=== PATIENT | female | born 1975 | race Caucasian/White ===

== ENCOUNTER 2016-04-26 18:37 | Emergency (ER) | payer MEDICAID ==
[~2016-04-26] VITALS: Wt 79.0 kg
[~2016-04-26 18:37] MED LIST: NAPR-688 PO
[2016-04-26] MEDS ORDERED: AMO500 PO (19:15)
--- NOTE | 2016-04-26 19:15 | ERD ---
ER Documentation Chief Complaint Date/Time DATE: 04/26/16 Chief Complaint Sore throat, fever HPI The patient is a 40-year-old female who presents to the Emergency Department with complaint of sore throat and fever for the past 2 days. The patient describes a [id number] aching pain to the posterior pharynx that is constant since onset. She rates her current pain as 6/10, and notes that the pain increases upon swallowing solids. However, she denies any difficulty tolerating solids/liquids. Denies any change in phonation, excessive drooling, or difficulty tolerating her oral secretions. Denies difficulty opening/ closing the mouth. Denies recent dental trauma, surgery, or infections. Denies neck pain, neck stiffness, ear pain, cough, or new rashes. Denies chest pain, palpitations, shortness of breath. Denies any sick contacts with similar symptoms. The patient does note that she has experienced similar symptoms in the past, at which time she was diagnosed with streptococcal pharyngitis, and placed on a course of antibiotics. ROS All systems reviewed and are negative except as per history of present illness. Medications Home Meds Active Scripts Benzocaine/Menthol* (Cepacol* Sore Throat Lozenges) 1 Each Lozenge, 1 EACH MM q2h Y for SORE THROAT, #18 LOZENGE Prov:ANAND ESTES PA-C 04/26/16 Ibuprofen* (Motrin*) 600 Mg Tab, 600 MG PO Q6, #30 TAB Prov:ANAND ESTES PA-C 04/26/16 Amoxicillin* (Amoxicillin*) 500 Mg Cap, 500 MG PO BID for 10 Days, CAP Prov:ANAND ESTES PA-C 04/26/16 Reported Medications Naproxen* (Naproxen*) 500 Mg Tablet, 500 MG PO BID 10/14/11 Allergies Allergies: Coded Allergies: No Known Allergy (Verified , 11/10/13) PMhx/Soc History of Surgery: No Anesthesia Reaction: No Hx Neurological Disorder: No Hx Respiratory Disorders: No Hx Cardiac Disorders: No Hx Psychiatric Problems: No Hx Miscellaneous Medical Probl: No Hx Alcohol Use: No Hx Substance Use: No Hx Tobacco Use: No Physical Exam Vitals Vital Signs Date Time Temp Pulse Resp B/P Pulse Ox O2 Delivery O2 Flow Rate FiO2 1/27/17 18:50 98.7 91 20 117/59 98 Physical Exam GENERAL: Well-developed, well-nourished, in no acute distress. Nontoxic. Well- appearing. HEENT: Head is normocephalic, atraumatic. No scleral pallor or icterus. Pupils equal, round and reactive to light. Extraocular movements intact. Conjunctiva pink. Nares are patent bilaterally. Bilaterally tympanic membranes are clear with no evidence of erythema, effusion or dulling of the light reflex. Moist mucous membranes. Posterior pharynx erythematous with exudates noted bilaterally. Uvula is midline with no deviation. No trismus. No stridor. No excessive drooling. No brawny induration. No submandibular swelling. No tripoding. No pooling of oral secretions. Phonation is normal. NECK: Supple. Tender anterior cervical lymphadenopathy. lymphadenopathy. Trachea midline. No nuchal rigidity. Full range of motion. RESPIRATORY: Lungs are clear to auscultation bilaterally. Equal breath sounds. Normal expiratory effort. CARDIOVASCULAR: Regular rate and rhythm. No murmurs. GASTROINTESTINAL: Abdomen is soft, nontender, and nondistended. Normal bowel sounds. BACK: Normal range of motion. EXTREMITIES: No clubbing, cyanosis, or edema. Normal skin perfusion. Moving all extremities. Muscle tone is normal. No focal swelling or erythema. Distal pulses are palpable, 2+ bilaterally. Capillary refill is less than 2 seconds. NEUROLOGIC: The patient is alert, awake, and oriented x 3. No focal neurologic deficits. Speech is normal. INTEGUMENT: Skin is clean, dry and intact. No rashes, lesions or petechiae present. Normal turgor. PSYCHIATRIC: Appropriate; Cooperative. Procedures/MDM This is a 40-year-old female presenting to the Emergency Department complaining of sore throat and fever. She is non-toxic appearing and exhibits no meningeal signs. On physical examination the patient's posterior pharynx is erythematous, with exudates noted bilaterally. She had tender anterior cervical lymphadenopathy. The differential diagnosis includes, but is not limited to, pharyngitis, laryngitis, epiglottitis, peritonsillar abscess, Dionicio's angina, mononucleosis, allergic reaction, candidiasis, stomatitis, foreign body, dental pain, pneumonia. The patient's condition remained stable during her stay. Given that the patient presented with fever, tonsillar exudates, tender anterior cervical lymphadenopathy and no cough, she fulfilled all four conditions of the Cent[employer] Criteria, and I believe that the patient's symptoms are most consistent with exudative pharyngitis, likely streptococcal. Uvula is midline. There was no uvular deviation, submandibular swelling, brawny induration, elevation of the tongue, change in phonation, tripoding. I do not suspect peritonsillar abscess, retropharyngeal abscess, Dionicio's angina, epiglottitis or any other emergent medical condition. At this time, the patient is in stable condition, and therefore can be discharged home with prescriptions for Amoxicillin, Ibuprofen and Cepacol lozenges, and given strict return precautions for signs of deteriorating or worsening condition. She is advised to follow-up with her primary care provider for reevaluation and further management within the next 2-3 days, or return to the ER sooner for any new or worsening symptoms. I shared my medical decision making and plan with the patient at length and in great detail, and she verbally understands and agrees with the plan for further observation and care as an outpatient. At the time of discharge, all questions were answered. Departure Diagnosis: Primary Impression: Exudative pharyngitis Condition: Stable Patient Instructions: Pharyngitis, Strep (Presumed), Self-Care for Sore Throats , When You Have a Sore Throat Additional Instructions: Llame al doctor ERANANA y renate yessy BIJAN PARA DENTRO DE 2-3 WHITAKER.Dgale a la secretaria que nosotros le instruimos hacer esta bijan.Avise o llame si mayer condicin se empeora antes de la bijan. Regresa aqui si peor o no mejor. ANAND ESTES PA-C Apr 26, 2016 19:15
[2016-04-26] MEDS ORDERED: IBUP-1542 PO (19:16)
[2016-04-26] MEDS ORDERED: BENZ1LOZ52 MM (19:16)
== END 2016-04-26 19:16 | disposition home or self-care (01) ==
LOC: E/R 18:37
DX: J02.9 Acute pharyngitis, unspecified (principal)
CPT/HCPCS: 99283

== ENCOUNTER 2016-04-28 13:47 | Emergency (ER) | payer MEDICAID ==
[~2016-04-28] VITALS: Wt 72.0 kg
[~2016-04-28 13:47] MED LIST changes: +AMO500 PO; +BENZ1LOZ52 MM; +IBUP-1542 PO
[2016-04-28] MEDS ORDERED: KETOROLAC 60 MG INJ IM STA (14:42)
[2016-04-28] MEDS ORDERED: ACET1TAB40 PO (14:43)
--- NOTE | 2016-04-28 14:46 | ERD ---
ER Documentation Chief Complaint Date/Time DATE: 04/28/16 TIME: 14:44 Chief Complaint RIGHT SIDE NECK SWELLING FOR A FEW DAYS. NOT BETTER WITH ABX HPI This 40-year-old female presents with sore throat and swelling on the right side of her neck for the last 3 days. She was seen here 2 days ago and treated with amoxicillin and ibuprofen. She has no fevers, shortness of breath, vomiting. She has pain with swallowing. Symptoms are worse on the right side ROS All systems reviewed and are negative except as per history of present illness. Medications Home Meds Active Scripts Acetaminophen with Codeine (Acetaminophen-Cod #3 Tablet) 1 Each Tablet, 1 TAB PO Q6H, #7 TAB Prov:SREEDHAR POLLACK MD 04/28/16 Benzocaine/Menthol* (Cepacol* Sore Throat Lozenges) 1 Each Lozenge, 1 EACH MM q2h Y for SORE THROAT, #18 LOZENGE Prov:ANAND ESTES PA-C 04/26/16 Ibuprofen* (Motrin*) 600 Mg Tab, 600 MG PO Q6, #30 TAB Prov:ANAND ESTES PA-C 04/26/16 Amoxicillin* (Amoxicillin*) 500 Mg Cap, 500 MG PO BID for 10 Days, CAP Prov:ANAND ESTES PA-C 04/26/16 Reported Medications Naproxen* (Naproxen*) 500 Mg Tablet, 500 MG PO BID 10/14/11 Allergies Allergies: Coded Allergies: No Known Allergy (Verified , 11/10/13) PMhx/Soc History of Surgery: No Anesthesia Reaction: No Hx Neurological Disorder: No Hx Respiratory Disorders: No Hx Cardiac Disorders: No Hx Psychiatric Problems: No Hx Miscellaneous Medical Probl: No Hx Alcohol Use: No Hx Substance Use: No Hx Tobacco Use: No Physical Exam Vitals Vital Signs Date Time Temp Pulse Resp B/P Pulse Ox O2 Delivery O2 Flow Rate FiO2 04/28/16 13:56 98.6 91 20 125/75 98 Physical Exam Const: [] Alert, [id number] per Head: Atraumatic Eyes: Normal Conjunctiva ENT: Normal External Ears, Nose and Mouth. There are some tender anterior cervical lymphadenitis on the right side. Tonsils are 2+ with exudate. Uvula is midline. There is some very slight peritonsillar swelling on the right. Neck: Full range of motion..~ No meningismus. Resp: Clear to auscultation bilaterally Cardio: Regular rate and rhythm, no murmurs Abd: Soft, non tender, non distended. Normal bowel sounds Skin: No petechiae or rashes Back: No midline or flank tenderness Ext: No cyanosis, or edema Neur: Awake and alert Psych: Normal Mood and Affect Results 24 hrs Current Medications Medications (Trade) Dose Ordered Sig/Nancy Route PRN Reason Start Time Stop Time Status Last Admin Dose Admin Ketorolac Tromethamine (Toradol) 60 mg ONCE STAT IM 04/28/16 14:42 04/28/16 14:43 DC Dexamethasone (Decadron) 10 mg ONCE ONCE IM 04/28/16 15:00 04/28/16 15:01 Procedures/MDM Patient presents with partially treated exudative pharyngitis. She may have a very small early abscess but currently is not size with which appears to need incision and drainage of further evaluation. She has some tender lymphadenitis as well. She will be treated with Decadron 10 mg IM, Toradol 60 mg IM and instructions to recheck the next day for worsening swelling, difficulty for evaluation of peritonsillar abscess. Patient currently has no airway compromise , visual erythema, signs of cellulitis or sepsis Departure Diagnosis: Primary Impression: Pharyngitis Pharyngitis/tonsillitis etiology: unspecified etiology Qualified Code: J02.9 - Pharyngitis, unspecified etiology Condition: Stable Patient Instructions: Pharyngitis, Strep (Presumed), Peritonsillar Infection Abx Only, No I And D Additional Instructions: CONTINUA AMOXICILLINA. Cheque otro vez con mayer doctor primario en el proximo francisco or regresa para mas o nueva simptomas MANANA. SREEDHAR POLLACK MD Apr 28, 2016 14:46
[2016-04-28] MEDS ORDERED: DEXAMETHASONE 10 MG/ML 1 ML INJ IM ONE (15:00)
== END 2016-04-28 16:30 | disposition home or self-care (01) ==
LOC: FTE 13:47
DX: J02.9 Acute pharyngitis, unspecified (principal)
CPT/HCPCS: 96372; J1100; J1885; Z7502

== ENCOUNTER 2016-05-01 19:23 | Emergency (ER) | payer MEDICAID ==
[~2016-05-01] VITALS: Ht 162.6 cm; Wt 78.0 kg
[~2016-05-01 19:23] MED LIST changes: +ACET1TAB40 PO
[2016-05-01 20:07] VITALS: Ht 162.6 cm; Wt 78.0 kg
[2016-05-01] MEDS ORDERED: IBUP-1542 PO (20:29)
[2016-05-01] MEDS ORDERED: CLIN-73 PO (20:29)
[2016-05-01] MEDS ORDERED: PRED50TA PO (20:29)
--- NOTE | 2016-05-01 20:35 | ERD ---
ER Documentation Chief Complaint Date/Time DATE: 05/01/16 TIME: 20:33 Chief Complaint c/o sore throat for a week seen 3x here HPI 40-year-old female presents here in emergency department for reevaluation, patient was seen here 3 days ago for the same problem, was complaining of sore throat, patient was given antibiotic states that continues to have the pain but symptoms has improved. Patient was advised to return here for reevaluation. Patient discussed the started as burning pain,4/10 scale, is worse upon swallowing. Patient denies any stridor or shortness of breath. Patient denies any fever or chills. Patient denies any difficulty swallowing. ROS All systems reviewed and are negative except as per history of present illness. Medications Home Meds Active Scripts Clindamycin Hcl* (Clindamycin Hcl*) 300 Mg Capsule, 300 MG PO TID for 10 Days, CAP Prov:INGA GREENWOOD NP 05/01/16 Prednisone* (Prednisone*) 50 Mg Tablet, 50 MG PO DAILY for 5 Days, TAB Prov:INGA GREENWOOD NP 05/01/16 Ibuprofen* (Motrin*) 600 Mg Tab, 600 MG PO Q6H Y for PAIN AND OR ELEVATED TEMP, #30 TAB Prov:INGA GREENWOOD NP 05/01/16 Acetaminophen with Codeine (Acetaminophen-Cod #3 Tablet) 1 Each Tablet, 1 TAB PO Q6H, #7 TAB Prov:SREEDHAR POLLACK MD 04/28/16 Benzocaine/Menthol* (Cepacol* Sore Throat Lozenges) 1 Each Lozenge, 1 EACH MM q2h Y for SORE THROAT, #18 LOZENGE Prov:ANAND ESTES PA-C 04/26/16 Ibuprofen* (Motrin*) 600 Mg Tab, 600 MG PO Q6, #30 TAB Prov:ANAND ESTES PA-C 04/26/16 Amoxicillin* (Amoxicillin*) 500 Mg Cap, 500 MG PO BID for 10 Days, CAP Prov:ANAND ESTES PA-C 04/26/16 Reported Medications Naproxen* (Naproxen*) 500 Mg Tablet, 500 MG PO BID 10/14/11 Allergies Allergies: Coded Allergies: No Known Allergy (Verified , 11/10/13) PMhx/Soc Medical and Surgical Hx: pt denies Medical Hx, pt denies Surgical Hx History of Surgery: No Anesthesia Reaction: No Hx Neurological Disorder: No Hx Respiratory Disorders: No Hx Cardiac Disorders: No Hx Psychiatric Problems: No Hx Miscellaneous Medical Probl: No Hx Alcohol Use: No Hx Substance Use: No Hx Tobacco Use: No FmHx Family History: No coronary disease, No diabetes, No other Physical Exam Vitals Vital Signs Date Time Temp Pulse Resp B/P Pulse Ox O2 Delivery O2 Flow Rate FiO2 05/01/16 20:07 99.0 78 16 124/60 98 Physical Exam GENERAL: The patient is well developed and appropriate for usual state of health, in no apparent distress. HEENT: Atraumatic. Ears: Normal tympanic membrane, no erythema or bulging. No ear canal swelling. No ear discharge. Nose: normal nasal turbinates, no erythema or swelling. Normal nasal discharge. Throat: oropharynx erythematous with +1 tonsillar swelling, no exudates noted, no peritonsillar abscess noted. No lymphadenopathy. CHEST: Clear to auscultation bilaterally. There are no rales, wheezes or rhonchi. HEART: Regular rate and rhythm. No murmurs, clicks, rubs or gallops. No S3 or S4. ABDOMEN: Soft, nontender and nondistended. Good bowel sounds. No rebound or guarding. No gross peritonitis. No gross organomegaly or masses. No Thompson sign or McBurney point tenderness. BACK: No midline or flank tenderness. EXTREMITIES: Equal pulses bilaterally. There is no peripheral clubbing, cyanosis or edema. No focal swelling or erythema. Full range of motion. Grossly neurovascularly intact. NEURO: Alert and oriented. Cranial nerves 2-12 intact. Motor strength in all 4 extremities with 5/5 strength. Sensation grossly intact. Normal speech and gait. SKIN: There is no apparent rash or petechia. The skin is warm and dry. HEMATOLOGIC AND LYMPHATIC: There is no evidence of excessive bruising or lymphedema. No gross cervical, axillary, or inguinal lymphadenopathy. Procedures/MDM Medical decision making: Patient's symptoms subsided consistent with acute bacterial pharyngitis, no symptoms of peritonsillar abscess, no symptoms of respiratory distress, improved from last time patient was seen here in emergency department, patient's pain continues to persist, we'll change antibiotics from amoxicillin to clindamycin, is advised to follow-up with ENT specialist within 2-3 days for reevaluation of symptoms, patient was given resources for to follow-up, patient was also given prescription of prednisone, ibuprofen, to health the other symptoms, patient is advised to follow with primary care doctor in 3-4 days, see ENT specialist within 2-3 days, patient is advised to return to emergency department for any worsening symptoms Departure Diagnosis: Primary Impression: Acute bacterial pharyngitis Condition: Stable Patient Instructions: Pharyngitis, Strep (Presumed) Referrals: JOJO BARGER MD, ALI R MD Additional Instructions: see ent specialist in 2-3 days, take meds as prescribed INGA GREENWOOD NP May 01, 2016 20:35
== END 2016-05-01 20:32 | disposition home or self-care (01) ==
LOC: FTE 19:23 → E/R 20:32
DX: J02.9 Acute pharyngitis, unspecified (principal)
CPT/HCPCS: 99284

== ENCOUNTER 2016-10-27 18:58 | Emergency (ER) | payer MEDICAID ==
[~2016-10-27] VITALS: Ht 157.5 cm; Wt 70.4 kg
[~2016-10-27 18:58] MED LIST changes: +CLIN-73 PO; +PRED50TA PO
[2016-10-27 19:13] VITALS: Ht 157.5 cm; Wt 70.4 kg
[2016-10-27] MEDS ORDERED: KETOROLAC 30 MG INJ IM STA (19:26)
--- NOTE | 2016-10-27 20:15 | ERD ---
ER Documentation Chief Complaint Date/Time DATE: 10/27/16 TIME: 20:11 Chief Complaint increase lt knee pain from fall 3 months ago HPI This is a 41-year-old female presenting to emergency department with left knee pain after injury 3 months ago. Patient states she slipped and fell while walking her dog 3 months ago and is now having worsening pain over the last 2 weeks. Patient states at times she has difficulty ambulating due to pain. Patient takes Advil for pain and took 1 tablet this morning and states pain has improved since then. Patient also states ice and rest seem to improve pain. No redness or laceration. No bruising. No swelling. Remains neurovascularly intact. Denies numbness, tingling or loss of sensation. No other complaints. ROS All systems reviewed and are negative except as per history of present illness. Medications Home Meds Active Scripts Ibuprofen* (Motrin*) 600 Mg Tab, 600 MG PO Q6, #15 TAB Prov:EDUIN GAMBLE NP 10/27/16 Clindamycin Hcl* (Clindamycin Hcl*) 300 Mg Capsule, 300 MG PO TID for 10 Days, CAP Prov:INGA GREENWOOD NP 05/01/16 Prednisone* (Prednisone*) 50 Mg Tablet, 50 MG PO DAILY for 5 Days, TAB Prov:INGA GREENWOOD NP 05/01/16 Ibuprofen* (Motrin*) 600 Mg Tab, 600 MG PO Q6H Y for PAIN AND OR ELEVATED TEMP, #30 TAB Prov:INGA GREENWOOD NP 05/01/16 Acetaminophen with Codeine (Acetaminophen-Cod #3 Tablet) 1 Each Tablet, 1 TAB PO Q6H, #7 TAB Prov:SREEDHAR POLLACK MD 04/28/16 Benzocaine/Menthol* (Cepacol* Sore Throat Lozenges) 1 Each Lozenge, 1 EACH MM q2h Y for SORE THROAT, #18 LOZENGE Prov:ANAND ESTES PA-C 04/26/16 Ibuprofen* (Motrin*) 600 Mg Tab, 600 MG PO Q6, #30 TAB Prov:ANAND ESTES PA-C 04/26/16 Amoxicillin* (Amoxicillin*) 500 Mg Cap, 500 MG PO BID for 10 Days, CAP Prov:ANAND ESTES PA-C 04/26/16 Reported Medications Naproxen* (Naproxen*) 500 Mg Tablet, 500 MG PO BID 10/14/11 Allergies Allergies: Coded Allergies: No Known Allergy (Verified , 10/27/16) PMhx/Soc Medical and Surgical Hx: pt denies Medical Hx, pt denies Surgical Hx History of Surgery: No Anesthesia Reaction: No Hx Neurological Disorder: No Hx Respiratory Disorders: No Hx Cardiac Disorders: No Hx Psychiatric Problems: No Hx Miscellaneous Medical Probl: No Hx Alcohol Use: No Hx Substance Use: No Hx Tobacco Use: No Smoking Status: Never smoker Physical Exam Vitals Vital Signs Date Time Temp Pulse Resp B/P Pulse Ox O2 Delivery O2 Flow Rate FiO2 10/27/16 20:58 73 16 115/71 97 Room Air 10/27/16 19:13 97.0 67 18 110/58 97 Physical Exam Const: No acute distress, alert, smiling during exam Head: Atraumatic Eyes: Normal Conjunctiva ENT: Normal External Ears, Nose and Mouth. Neck: Full range of motion..~ No meningismus. Resp: Clear to auscultation bilaterally Cardio: Regular rate and rhythm, no murmurs Abd: Soft, non tender, non distended. Normal bowel sounds Skin: No petechiae or rashes Back: No midline or flank tenderness Ext: full extension and flexion of left knee. No tenderness to palpation. Mild posterior swelling of left knee. Neur: Awake and alert Psych: Normal Mood and Affect Results 24 hrs Current Medications Medications (Trade) Dose Ordered Sig/Nancy Route PRN Reason Start Time Stop Time Status Last Admin Dose Admin Ketorolac Tromethamine (Toradol) 30 mg ONCE STAT IM 10/27/16 19:26 10/27/16 19:28 DC 10/27/16 19:48 Procedures/MDM [place] [id number] Radiology Main Line: [phone] DIAGNOSTIC IMAGING REPORT Patient: GAVIN BYERS : 1975 Age: 41 Sex: F MR #: [id number] DOS: 10/27/16 192 Ordering MD: EDUIN GAMBLE NP Location: [facility] Room/Bed: PROCEDURE: CR Left Knee CLINICAL INDICATION: Knee pain after injury months ago TECHNIQUE: An AP, a tunnel and a lateral view were submitted. COMPARISON: None FINDINGS: Osseous Structures: The osseous elements appear well mineralized and intact. Joint Spaces: The joint spaces are well maintained. There is a moderate joint effusion.. Soft Tissues: The soft tissues appear unremarkable. IMPRESSION: 1. The osseous elements appear intact. 2. Moderate joint effusion. MDM: This is a 41-year-old female presenting to emergency department for left knee pain after fall 3 months ago. Patient takes Advil at home and took 1 pill this morning. Patient given Toradol 30 mg IM while in the ED. X-ray left knee reviewed by radiologist as osseous elements appear intact. Moderate joint effusion. Nick wrap applied while in the ED. Remains neurovascularly intact. Ambulating without difficulty while in the ED. Vital signs remained stable. Patient is alert and calm throughout ED visit. Low suspicion for acute dislocation or fracture. Patient likely has knee pain secondary to injury, possible ligament injury Patient is appropriate for outpatient management and will be given prescription for ibuprofen 600 mg #15. Instructed patient to follow-up with primary care provider in the next 2-3 days for reassessment and additional management. Return to ED for any high fever, chest pain, difficulty breathing, shortness breath, wheezing, vomiting, diarrhea, abdominal pain or any new or worsening symptoms. Patient verbalizes understanding. All questions answered at discharge. Departure Diagnosis: Primary Impression: Knee injury Encounter type: initial encounter Laterality: left Qualified Code: S89.92XA - Knee injury, left, initial encounter Condition: Stable EDUIN GAMBLE NP Oct 27, 2016 20:15
--- NOTE | 2016-10-27 20:18 | RADRPT ---
PROCEDURE: CR Left Knee CLINICAL INDICATION: Knee pain after injury months ago TECHNIQUE: An AP, a tunnel and a lateral view were submitted. COMPARISON: None FINDINGS: Osseous Structures: The osseous elements appear well mineralized and intact. Joint Spaces: The joint spaces are well maintained. There is a moderate joint effusion.. Soft Tissues: The soft tissues appear unremarkable. IMPRESSION: 1. The osseous elements appear intact. 2. Moderate joint effusion. Raleigh De Dios Physician Date Time Electronically viewed and signed by Raleigh De Dios Physician on 10/27/2016 20:17 RH/
[2016-10-27] MEDS ORDERED: IBUP-1542 PO (20:40)
[2016-10-27 20:58] VITALS: BP 115/71; PULSE 73; RESP 16
== END 2016-10-27 20:59 | disposition home or self-care (01) ==
LOC: FTE 18:58
DX: S89.92XA Unspecified injury of left lower leg, initial encounter (principal); W01.0XXA Fall on same level from slipping, tripping and stumbling without subsequent striking against object, initial encounter; Y92.9 Unspecified place or not applicable
CPT/HCPCS: 73562; J1885; Z7502

== ENCOUNTER 2017-08-10 19:38 | Emergency (ER) | END 2017-08-10 22:39 | disposition home or self-care (01) ==

== ENCOUNTER 2018-08-17 08:19 | Emergency (ER) | payer MEDICAID ==
[~2018-08-17] VITALS: Ht 160 cm; Wt 74.4 kg
[~2018-08-17 08:19] MED LIST changes: -AMO500 PO; +AMOX500C2 PO; -CLIN-73 PO; +CLIN300C10 PO; +CYCL10TA7 PO; +NAPR-985 PO
[2018-08-17 08:21] VITALS: BP 134/86; PULSE 74; RESP 18; Ht 160 cm; Wt 74.4 kg
[2018-08-17] MEDS ORDERED: ONDANSETRON (ODT) 4 MG TAB ODT STA (08:46)
[2018-08-17] MEDS ORDERED: LIDOCAINE/MYLANTA 40 ML BTL PO STA (08:46)
[2018-08-17] MEDS ORDERED: FAMO-96 PO (10:19)
--- NOTE | 2018-08-17 11:55 | ERD ---
ER Documentation Chief Complaint Chief Complaint abd pain x 2 days with nausea HPI Patient is a 43-year-old female with no past medical history presents the ER for concerns of epigastric abdominal pain x2 days. Patient reports nausea however she denies any vomiting. Patient denies fevers or chills. Patient denies any diarrhea. Patient does admit to eating spicy foods. She states she also does drink 2 to 3 cups of coffee per day and does take NSAIDs. Patient denies any chest pain, shortness of breath, left upper extremity pain, diaphoresis or LOC. No recent travel. ROS All systems reviewed and are negative except as per history of present illness. Medications Home Meds Active Scripts Famotidine* (Pepcid*) 20 Mg Tablet, 20 MG PO BID for 30 Days, TAB Prov:LINDY VINES PA-C 08/17/18 Cyclobenzaprine Hcl* (Cyclobenzaprine Hcl*) 10 Mg Tablet, 10 MG PO Q12 PRN for MUSCLE SPASMS, #20 TAB Prov:PASILABANELLIEAR F 08/10/17 Naproxen* (Naprosyn*) 500 Mg Tablet, 500 MG PO BID PRN for PAIN AND/OR INFLAMMATION, #30 TAB Prov:PASILABANELLIEAR F 08/10/17 Ibuprofen* (Motrin*) 600 Mg Tab, 600 MG PO Q6, #15 TAB Prov:EDUIN GAMBLE NP 10/27/16 Clindamycin Hcl* (Clindamycin Hcl*) 300 Mg Capsule, 300 MG PO TID for 10 Days, CAP Prov:INGA GREENWOOD NP 05/01/16 Prednisone* (Prednisone*) 50 Mg Tablet, 50 MG PO DAILY for 5 Days, TAB Prov:INGA GREENWOOD NP 05/01/16 Ibuprofen* (Motrin*) 600 Mg Tab, 600 MG PO Q6H PRN for PAIN AND OR ELEVATED TEMP, #30 TAB Prov:INGA GREENWOOD NP 05/01/16 Acetaminophen with Codeine (Acetaminophen-Cod #3 Tablet) 1 Each Tablet, 1 TAB PO Q6H, #7 TAB Prov:SREEDHAR POLLACK MD 04/28/16 Benzocaine/Menthol* (Cepacol* Sore Throat Lozenges) 1 Each Lozenge, 1 EACH MM q2h PRN for SORE THROAT, #18 LOZENGE Prov:ANAND ESTES PA-C 04/26/16 Ibuprofen* (Motrin*) 600 Mg Tab, 600 MG PO Q6, #30 TAB Prov:ANAND ESTES PA-C 04/26/16 Amoxicillin* (Amoxicillin*) 500 Mg Cap, 500 MG PO BID for 10 Days, CAP Prov:ANAND ESTES PA-C 04/26/16 Reported Medications Naproxen* (Naproxen*) 500 Mg Tablet, 500 MG PO BID 10/14/11 Allergies Allergies: Coded Allergies: No Known Allergy (Verified , 10/27/16) PMhx/Soc Medical and Surgical Hx: pt denies Medical Hx, pt denies Surgical Hx History of Surgery: No Anesthesia Reaction: No Hx Neurological Disorder: No Hx Respiratory Disorders: No Hx Cardiac Disorders: No Hx Psychiatric Problems: No Hx Miscellaneous Medical Probl: No Hx Alcohol Use: No Hx Substance Use: No Hx Tobacco Use: No Smoking Status: Never smoker FmHx Family History: No diabetes Physical Exam Vitals Vital Signs Date Temp Pulse Resp B/P (MAP) Pulse Ox O2 O2 Flow FiO2 Time Delivery Rate 08/17/18 98.6 74 18 134/86 99 08:21 (102) Physical Exam GENERAL: Well-developed, well-nourished female. Appears in no acute distress. HEAD: Normocephalic, atraumatic. EYES: Pupils are equally reactive bilaterally. EOMs grossly intact. No conjunctival erythema. ENT: Moist mucous membranes. No uvula deviation. No kissing tonsils. NECK: Supple. No meningismus. Normal range of motion of the neck. LUNG: Clear to auscultation bilaterally. No rhonchi, wheezing, rales or coarse breath sounds. HEART: Regular rate and rhythm. No murmurs, rubs or gallops. ABDOMEN: Soft nondistended. Tender to palpation in the epigastric region. Positive bowel sounds in all four quadrants. No rebound tenderness, no guarding. (-) McBurney's point tenderness. No CVA tenderness. EXTREMITIES: Equal pulses bilaterally. No peripheral clubbing, cyanosis or edema. No unilateral leg swelling. NEUROLOGIC: Alert and oriented. Moving all four extremities without any difficulty. Normal speech. Steady gait. SKIN: Normal color. Warm and dry. No rashes or lesions. Result Diagram: 08/17/18 0859 08/17/18 0900 Results 24 hrs Laboratory Tests Test 08/17/18 08:59 08/17/18 09:00 08/17/18 09:02 White Blood Count 5.6 10^3/ul Red Blood Count 4.51 10^6/ul Hemoglobin 13.0 g/dl Hematocrit 40.1 % Mean Corpuscular Volume 88.9 fl Mean Corpuscular Hemoglobin 28.8 pg Mean Corpuscular 32.4 g/dl Hemoglobin Concent Red Cell Distribution Width 12.2 % Platelet Count 195 10^3/UL Mean Platelet Volume 12.3 fl Immature Granulocytes % 0.200 % Neutrophils % 64.2 % Lymphocytes % 20.4 % Monocytes % 11.6 % Eosinophils % 3.2 % Basophils % 0.4 % Nucleated Red Blood Cells % 0.0 /100WBC Immature Granulocytes # 0.010 10^3/ul Neutrophils # 3.6 10^3/ul Lymphocytes # 1.1 10^3/ul Monocytes # 0.7 10^3/ul Eosinophils # 0.2 10^3/ul Basophils # 0.0 10^3/ul Nucleated Red Blood Cells # 0.0 10^3/ul Urine Color YELLOW Urine Clarity CLOUDY Urine pH 5.0 Urine Specific [place] 1.028 Urine Ketones NEGATIVE mg/dL Urine Nitrite NEGATIVE mg/dL Urine Bilirubin NEGATIVE mg/dL Urine Urobilinogen NEGATIVE mg/dL Urine Leukocyte Esterase 2+ Luigi/ul Urine Microscopic RBC 3 /HPF Urine Microscopic WBC 18 /HPF Urine Squamous Epithelial Cells MANY /HPF Urine Bacteria FEW /HPF Urine Mucus MODERATE /HPF Urine Hemoglobin 1+ mg/dL Urine Glucose NEGATIVE mg/dL Urine Total Protein NEGATIVE mg/dl Sodium Level 143 mmol/L Potassium Level 3.8 mmol/L Chloride Level 109 mmol/L Carbon Dioxide Level 26 mmol/L Anion Gap 8 Blood Urea Nitrogen 11 mg/dl Creatinine 0.50 mg/dl Est Glomerular Filtrat > 60 mL/min Rate mL/min Glucose Level 85 mg/dl Calcium Level 9.1 mg/dl Total Bilirubin 0.3 mg/dl Direct Bilirubin 0.00 mg/dl Indirect Bilirubin 0.3 mg/dl Aspartate Amino 25 IU/L Transf (AST/SGOT) Alanine 25 IU/L Aminotransferase (ALT/SGPT) Alkaline Phosphatase 96 IU/L Troponin I < 0.012 ng/ml Total Protein 7.3 g/dl Albumin 4.3 g/dl Globulin 3.00 g/dl Albumin/Globulin Ratio 1.43 Lipase 111 U/L POC Beta HCG, Qualitative NEGATIVE Current Medications Medications Dose Sig/Nnacy Start Time Status Last (Trade) Ordered Route PRN Stop Time Admin Dose Reason Admin 40 ml ONCE STAT 08/17/18 DC 08/17/18 Miscellaneous PO 08:46 09:03 Medication 08/17/18 08:47 (Gi Cocktail (2)) Ondansetron 4 mg ONCE STAT 08/17/18 DC 08/17/18 HCl (Zofran ODT 08:46 09:03 Odt) 08/17/18 08:47 Procedures/MDM ED COURSE: The patient was stable throughout ED course. I kept the patient and/or family informed of laboratory and diagnostic imaging results throughout the ED course. EKG: Read by Dr. Benitez, attending physician. EKG shows normal sinus rhythm at a rate of 69 bpm. Nonspecific T wave changes noted. PROCEDURES: None. MEDICATIONS GIVEN: GI cocktail MEDICAL DECISION MAKING: This is a 43-year-old female presents the ER for concerns of epigastric pain x2 days. Patient does admit to eating spicy foods. Vital signs were reviewed. Patient is afebrile. Patient was not hypoxic. Blood work was obtained. CBC showed no evidence of systemic infection or severe anemia. CMP showed no evidence of electrolyte abnormalities, severe acidosis, alkalosis, renal failure, or liver disease. Troponin was negative. Lipase showed no evidence of acute pancreatitis. UA did show 2+ leukocyte esterase, 1+ blood. Many squamous epithelial cells were noted. Patient denied any dysuria, frequency, urgency or hematuria. At this time will defer treatment as patient is asymptomatic and urine sample is likely a dirty catch. Urine test was negative. EKG showed normal sinus rhythm. No ST elevations. Reviewed by ED attending. Patient was given a GI cocktail did report improvement in symptoms. Patient likely has gastritis versus GERD. Patient was advised to follow-up with a GI specialist for further management of her symptoms. Patient may need endoscopy on an outpatient basis. Differential diagnosis included was not limited to acute coronary syndrome, AAA, mesenteric ischemia, lower lobe pneumonia, DKA, bowel perforation, bowel obstruction, cholecystitis, choledocholithiasis, ascending cholangitis, hepatic abscess, pancreatitis, splenic rupture, diverticulitis, UTI, pyelonephritis, nephrolithiasis, appendicitis, constipation, , ectopic , PID, ovarian torsion or tubo-ovarian abscess. Patient was nontoxic, [id number] prior to discharge. PRESCRIPTIONS: Pepcid DISCHARGE: At this time, patient is stable for discharge and outpatient management. I have instructed the patient to follow-up with his/her primary care physician in 1-2 days. I have instructed the patient to promptly return to the ER at any time for any new or worsening symptoms including increased pain, nausea, vomiting, diarrhea, fever, weakness or LOC. The patient and/or family expressed understanding of and agreement with this plan. All questions were answered. Home care instructions were provided. Disclaimer: Inadvertent spelling and grammatical errors are likely due to EHR/dictation software use and do not reflect on the overall quality of patient care. Also, please note that the electronic time recorded on this note does not necessarily reflect the actual time of the patient encounter. Departure Diagnosis: Primary Impression: Epigastric abdominal pain Additional Impression: Gastritis Gastritis type: unspecified gastritis Chronicity: unspecified Gastritis bleeding: without bleeding Qualified Codes: K29.70 - Gastritis, unspecified, without bleeding Condition: Fair Patient Instructions: Gerd (Adult), Epigastric Pain (Uncertain Cause) Referrals: [facility] YOU HAVE RECEIVED A MEDICAL SCREENING EXAM AND THE RESULTS INDICATE THAT YOU DO NOT HAVE A CONDITION THAT REQUIRES URGENT TREATMENT IN THE EMERGENCY DEPARTMENT. FURTHER EVALUATION AND TREATMENT OF YOUR CONDITION CAN WAIT UNTIL YOU ARE SEEN IN YOUR DOCTORS OFFICE WITHIN THE NEXT 1-2 DAYS. IT IS YOUR RESPONSIBILITY TO MAKE AN APPOINTMENT FOR FOLOW-UP CARE. IF YOU HAVE A PRIMARY DOCTOR --you should call your primary doctor and schedule an appointment IF YOU DO NOT HAVE A PRIMARY DOCTOR YOU CAN CALL OUR PHYSICIAN REFERRAL HOTLINE AT IF YOU CAN NOT AFFORD TO SEE A PHYSICIAN YOU CAN CHOSE FROM THE FOLLOWING [facility] [address] [facility] [address] [facility] [address] [facility] [address] [facility] [address] [facility]. [facility] [address] [facility]. [facility] YOU HAVE RECEIVED A MEDICAL SCREENING EXAM AND THE RESULTS INDICATE THAT YOU DO NOT HAVE A CONDITION THAT REQUIRES URGENT TREATMENT IN THE EMERGENCY DEPARTMENT. FURTHER EVALUATION AND TREATMENT OF YOUR CONDITION CAN WAIT UNTIL YOU ARE SEEN IN YOUR DOCTORS OFFICE WITHIN THE NEXT 1-2 DAYS. IT IS YOUR RESPONSIBILITY TO MAKE AN APPOINTMENT FOR FOLOW-UP CARE. IF YOU HAVE A PRIMARY DOCTOR --you should call your primary doctor and schedule and appointment IF YOU DO NOT HAVE A PRIMARY DOCTOR YOU CAN CALL OUR PHYSICIAN REFERRAL HOTLINE AT . IF YOU CAN NOT AFFORD TO SEE A PHYSICIAN YOU CAN CHOSE FROM THE FOLLOWING [facility] INSTITUTIONS: [facility] [address] [place] [address] [facility] [address] [place] [address] [facility] [address] [place] [address] Additional Instructions: Llame al doctor MAANA y renate yessy BIJAN PARA DENTRO DE 1-2 WHITAKER.Dgale a la secretaria que nosotros le instruimos hacer esta bijan.Avise o llame si mayer condicin se empeora antes de la bijan. Regresa aqui si peor o no mejor. NO COMER COMIDAS ATIDAS, FRITAS Y ACIDICAS LINDY VINES PA-C August 17, 2018 11:54
== END 2018-08-17 10:19 | disposition home or self-care (01) ==
LOC: FTE 08:19
DX: K29.70 Gastritis, unspecified, without bleeding (principal)
CPT/HCPCS: 36415; 80053; 81001; 81025; 83690; 84484; 85025; 93005; Z7502; Z7610

== ENCOUNTER 2018-08-22 12:23 | Emergency (ER) | payer MEDICAID ==
[~2018-08-22] VITALS: Wt 71.0 kg
[~2018-08-22 12:23] MED LIST changes: +FAMO-96 PO
[2018-08-22 12:25] VITALS: BP 132/63; PULSE 83; RESP 18
[2018-08-22] MEDS ORDERED: ALBU18HF INHALATION (13:29)
[2018-08-22] MEDS ORDERED: D-ME118S24 PO (13:29)
--- NOTE | 2018-08-22 13:31 | ERD ---
ER Documentation Chief Complaint Chief Complaint COUGH X 3 DAYS HPI 43-year-old female presents for cough x3 days. States that the cough is dry. She also has associated subjective fever. She states that she took NyQuil with mild relief. Denies chest pain or shortness of breath. Denies sore throat. Denies runny nose. No other modifying factors noted, no other treatments tried at home. ROS All systems reviewed and are negative except as per history of present illness. Medications Home Meds Active Scripts D-Methorphan Hb/P-Epd HCl/Bpm (Mohpanoimi-Ppkguhrmpsq-Dg Syr) 118 Ml Syrup, 5 ML PO Q4H PRN for COUGH for 10 Days, #1 BOTTLE Prov:MARIELENA FOX DO 08/22/18 Albuterol Sulfate* (Ventolin HFA*) 18 Gm Hfa.aer.ad, 2 PUFF INHALATION Q4H PRN for cough/shortness of breath, #1 INHALER Prov:MARIELENA FOX DO 08/22/18 Famotidine* (Pepcid*) 20 Mg Tablet, 20 MG PO BID for 30 Days, TAB Prov:LINDY VINES PA-C 08/17/18 Cyclobenzaprine Hcl* (Cyclobenzaprine Hcl*) 10 Mg Tablet, 10 MG PO Q12 PRN for MUSCLE SPASMS, #20 TAB Prov:SARTHAK CRESPO 08/10/17 Naproxen* (Naprosyn*) 500 Mg Tablet, 500 MG PO BID PRN for PAIN AND/OR INFLAMMATION, #30 TAB Prov:SARTHAK CRESPO 08/10/17 Ibuprofen* (Motrin*) 600 Mg Tab, 600 MG PO Q6, #15 TAB Prov:EDUIN GAMBLE NP 10/27/16 Clindamycin Hcl* (Clindamycin Hcl*) 300 Mg Capsule, 300 MG PO TID for 10 Days, CAP Prov:INGA GREENWOOD NP 05/01/16 Prednisone* (Prednisone*) 50 Mg Tablet, 50 MG PO DAILY for 5 Days, TAB Prov:INGA GREENWOOD NP 05/01/16 Ibuprofen* (Motrin*) 600 Mg Tab, 600 MG PO Q6H PRN for PAIN AND OR ELEVATED TEMP, #30 TAB Prov:INGA GREENWOOD NP 05/01/16 Acetaminophen with Codeine (Acetaminophen-Cod #3 Tablet) 1 Each Tablet, 1 TAB PO Q6H, #7 TAB Prov:SREEDHAR POLLACK MD 04/28/16 Benzocaine/Menthol* (Cepacol* Sore Throat Lozenges) 1 Each Lozenge, 1 EACH MM q2h PRN for SORE THROAT, #18 LOZENGE Prov:ANAND ESTES PA-C 04/26/16 Ibuprofen* (Motrin*) 600 Mg Tab, 600 MG PO Q6, #30 TAB Prov:ANAND ESTES PA-C 04/26/16 Amoxicillin* (Amoxicillin*) 500 Mg Cap, 500 MG PO BID for 10 Days, CAP Prov:ANAND ESTES PA-C 04/26/16 Reported Medications Naproxen* (Naproxen*) 500 Mg Tablet, 500 MG PO BID 10/14/11 Allergies Allergies: Coded Allergies: No Known Allergy (Verified , 10/27/16) PMhx/Soc History of Surgery: No Anesthesia Reaction: No Hx Neurological Disorder: No Hx Respiratory Disorders: No Hx Cardiac Disorders: No Hx Psychiatric Problems: No Hx Miscellaneous Medical Probl: No Hx Alcohol Use: No Hx Substance Use: No Hx Tobacco Use: No FmHx Family History: No coronary disease Physical Exam Vitals Vital Signs Date Temp Pulse Resp B/P (MAP) Pulse Ox O2 O2 Flow FiO2 Time Delivery Rate 08/22/18 99.4 83 18 132/63 99 12:25 (86) Physical Exam Const: No acute distress Head: Atraumatic Eyes: Normal Conjunctiva ENT: Normal External Ears, bilateral tympanic membrane intact without erythema or bulging noted, nose and Mouth examination normal, no tonsillar swelling or exudate noted Neck: Full range of motion. No meningismus. Resp: Clear to auscultation bilaterally, no wheezing, rales, rhonchi Cardio: Regular rate and rhythm, no murmurs Skin: No petechiae or rashes Ext: No cyanosis, or edema Neur: Awake and alert Psych: Normal Mood and Affect Procedures/MDM Medical Decision Making: Differential diagnosis includes but not limited to upper respiratory infection, pneumonia, sepsis, meningitis, influenza. Patient appeared well on physical examination, nontoxic appearing. Lungs were clear to auscultation bilaterally. There is low suspicion for pneumonia, sepsis, meningitis. Patient likely has an upper respiratory infection, likely viral. Therefore antibiotics not indicated. Discussed symptomatic treatment with patient who agrees with plan. Patient given prescription for supportive medication(s). Patient advised to follow up with PCP in 1-2 days. Patient advised to return to ED for new or worsening symptoms. Patient stable on discharge from the ED. Disclaimer: Inadvertent spelling and grammatical errors are likely due to EHR/dictation software use and do not reflect on the overall quality of patient care. Also, please note that the electronic time recorded on this note does not necessarily reflect the actual time of the patient encounter. Departure Diagnosis: Primary Impression: Cough Condition: Fair Patient Instructions: Preventing Common Respiratory Infections Referrals: [facility] YOU HAVE RECEIVED A MEDICAL SCREENING EXAM AND THE RESULTS INDICATE THAT YOU DO NOT HAVE A CONDITION THAT REQUIRES URGENT TREATMENT IN THE EMERGENCY DEPARTMENT. FURTHER EVALUATION AND TREATMENT OF YOUR CONDITION CAN WAIT UNTIL YOU ARE SEEN IN YOUR DOCTORS OFFICE WITHIN THE NEXT 1-2 DAYS. IT IS YOUR RESPONSIBILITY TO MAKE AN APPOINTMENT FOR FOLOW-UP CARE. IF YOU HAVE A PRIMARY DOCTOR --you should call your primary doctor and schedule an appointment IF YOU DO NOT HAVE A PRIMARY DOCTOR YOU CAN CALL OUR PHYSICIAN REFERRAL HOTLINE AT IF YOU CAN NOT AFFORD TO SEE A PHYSICIAN YOU CAN CHOSE FROM THE FOLLOWING [facility] [address] [facility]. [facility] [address] [facility]. [facility] [address] [facility] [address] [facility]. [facility] [address] [facility] [facility]. [address] Additional Instructions: Llame al doctor MAANA y renate yessy BIJAN PARA DENTRO DE 1-2 WHITAKER.Dgale a la secretaria que nosotros le instruimos hacer esta bijan.Avise o llame si mayer condicin se empeora antes de la bijan. Regresa aqui si peor o no mejor. MARIELENA FOX DO August 22, 2018 13:31
== END 2018-08-22 13:45 | disposition home or self-care (01) ==
LOC: FTE 12:23
DX: R05 Cough (principal)
CPT/HCPCS: 99283